=== PATIENT | female | born 1985 ===

== ENCOUNTER → 2018-01-18 12:55 | Outpatient (CLI) | payer OTHER | END | disposition home or self-care (01) | LOC: LAB 12:55 | DX: Z33.1 Pregnant state, incidental (principal); J11.1 Influenza due to unidentified influenza virus with other respiratory manifestations ==

== ENCOUNTER 2018-06-17 14:24 | Inpatient (IN) | payer OTHER ==
[~2018-06-17] VITALS: Ht 167.6 cm; Wt 89.8 kg
[2018-06-17] MEDS ORDERED: PRENATAL TABLE1 EAC1 PO (14:25)
== END 2018-06-20 17:57 | disposition home or self-care (01) | DRG 775 ==
LOC: LDR 14:24 → OB/GYN 19:29
PROC: 10E0XZZ Delivery of Products of Conception, External Approach (ICD-10-PCS; principal; 2018-06-17)
PROC: 0HQ9XZZ Repair Perineum Skin, External Approach (ICD-10-PCS; 2018-06-17)
PROC: 10907ZC Drainage of Amniotic Fluid, Therapeutic from Products of Conception, Via Natural or Artificial Opening (ICD-10-PCS; 2018-06-17)
PROC: 4A1HXCZ Monitoring of Products of Conception, Cardiac Rate, External Approach (ICD-10-PCS; 2018-06-17)
DX: O70.0 First degree perineal laceration during delivery (principal); Z3A.39 39 weeks gestation of pregnancy; Z37.0 Single live birth